=== PATIENT | female | born 1990 | race African-American/Black ===

== ENCOUNTER 2018-10-30 08:31 | Emergency (ER) | payer OTHER ==
[~2018-10-30] VITALS: Ht 167.6 cm; Wt 63.5 kg
[2018-10-30 08:52] LABS: URINE BLOOD 3+ (Negative); URINE CLARITY CLEAR; URINE COLOR YELLOW; URINE GLUCOSE-RANDOM* NEGATIVE (Negative); URINE KETONES 1+ (Negative); URINE NITRITE-REFLEX NEGATIVE (Negative); URINE PROTEIN (DIPSTICK) TRACE (Negative); URINE SPECIFIC GRAVITY >= 1.030 (1.005-1.035); URINE UROBILINOGEN 0.2 E.U./dl (0.2-1.0)
[2018-10-30 08:58] LABS: ICTOTEST (BILI CONFIRMATORY) Negative (Negative); URINE BILIRUBIN NEGATIVE (Negative); URINE LEUKOCYTES-REFLEX 2+ (Negative)
[2018-10-30 09:13] LABS: CASTS None Seen /LPF (None Seen); CRYSTALS None Seen /LPF (None Seen); SQUAMOUS >10 Many /LPF (0-3); URINE WBC-REFLEX >25 Many /HPF (0-5)
[2018-10-30 09:16] LABS: ABSOLUTE NEUTROPHILS 10.3 thou/uL (1.4-8.2); BASOPHILS 0.7 % (0.0-2.0); EOSINOPHILS 4.8 % (0.0-3.0); HEMATOCRIT 45.2 % (37.0-47.0); HEMOGLOBIN 15.3 gm/dL (12.0-15.0); LYMPHOCYTES 18.8 % (24.0-44.0); MCH 30.8 pg (26.0-34.0); MCHC 33.8 g/dL (28.0-37.0); MCV 91.2 fL (80.0-100.0); PLATELET COUNT 233 thou/uL (150-400); POLYS 66.7 % (36.0-66.0); RBC 4.96 mil/uL (4.20-5.00); RDW 13.8 % (10.5-14.5); WBC 15.4 thou/uL (4.0-11.0)
[2018-10-30 09:25] LABS: CALCIUM 9.3 mg/dL (8.5-10.1); CREATININE 0.8 mg/dL (0.6-1.0); POTASSIUM 3.3 mmol/L (3.5-5.1)
[2018-10-30 09:31] LABS: ALBUMIN 3.9 g/dL (3.4-5.0); TOTAL BILIRUBIN 0.6 mg/dL (<0.1-1.0); TOTAL PROTEIN 7.8 g/dL (6.4-8.2)
[2018-10-30] MEDS ORDERED: ADDERALL XR 2020 MG PO (09:41)
[2018-10-30] MEDS ORDERED: DOXYCYCLINE 10100 MG PO (12:10)
[2018-10-30] MEDS ORDERED: PROCTOCORT28.35 GM TOP (12:10)
[2018-10-30] MEDS ORDERED: FLAGYL500 M1 PO (12:10)
[2018-10-30] MEDS ORDERED: NORCO 5-325 TA1 EACH PO (12:10)
[2018-10-30] MEDS ORDERED: SENNA8.6 MG PO (12:10)
[2018-10-30 13:15] VITALS: BP 94/48
== END 2018-10-30 13:15 | disposition home or self-care (01) ==
LOC: ER 08:31
PROVIDERS: Physician Assistant
DX: N73.9 Female pelvic inflammatory disease, unspecified (principal); R11.10 Vomiting, unspecified; J45.909 Unspecified asthma, uncomplicated; K64.4 Residual hemorrhoidal skin tags; F17.210 Nicotine dependence, cigarettes, uncomplicated

== ENCOUNTER 2018-11-14 16:22 | Emergency (ER) | payer OTHER ==
[~2018-11-14] VITALS: Ht 167.6 cm; Wt 63.5 kg
[~2018-11-14 16:22] MED LIST: ADDERALL XR 2020 MG PO; DOXYCYCLINE 10100 MG PO; FLAGYL500 M1 PO; NORCO 5-325 TA1 EACH PO; PROCTOCORT28.35 GM TOP; SENNA8.6 MG PO
[2018-11-14] MEDS ORDERED: NAPROSYN500 MG PO (17:57)
[2018-11-14 18:04] VITALS: BP 100/62
[2018-11-14] MEDS ORDERED: ULTRAM 50MG TAB50 MG PO (18:12)
== END 2018-11-14 18:10 | disposition home or self-care (01) ==
LOC: ER 16:22
DX: S02.5XXA Fracture of tooth (traumatic), initial encounter for closed fracture (principal); S00.83XA Contusion of other part of head, initial encounter; S93.402A Sprain of unspecified ligament of left ankle, initial encounter; S93.602A Unspecified sprain of left foot, initial encounter; J45.909 Unspecified asthma, uncomplicated; F90.9 Attention-deficit hyperactivity disorder, unspecified type; F17.210 Nicotine dependence, cigarettes, uncomplicated; W10.9XXA Fall (on) (from) unspecified stairs and steps, initial encounter; Y93.89 Activity, other specified; Y92.89 Other specified places as the place of occurrence of the external cause; Y99.8 Other external cause status

== ENCOUNTER 2019-01-10 09:12 | Emergency (ER) | payer OTHER ==
[~2019-01-10] VITALS: Ht 167.6 cm; Wt 61.2 kg
[~2019-01-10 09:12] MED LIST changes: +NAPROSYN500 MG PO; +ULTRAM 50MG TAB50 MG PO
[2019-01-10 11:37] LABS: URINE BILIRUBIN NEGATIVE (Negative); URINE BLOOD 3+ (Negative); URINE CLARITY CLOUDY; URINE COLOR YELLOW; URINE GLUCOSE-RANDOM* NEGATIVE (Negative); URINE KETONES TRACE (Negative); URINE LEUKOCYTES-REFLEX NEGATIVE (Negative); URINE NITRITE-REFLEX NEGATIVE (Negative); URINE PROTEIN (DIPSTICK) NEGATIVE (Negative); URINE SPECIFIC GRAVITY >= 1.030 (1.005-1.035); URINE UROBILINOGEN 0.2 E.U./dl (0.2-1.0)
[2019-01-10 11:44] LABS: CASTS None Seen /LPF (None Seen); SQUAMOUS 0-3 Few /LPF (0-3); URINE RBC 3-10 Few /HPF (0-2)
[2019-01-10 11:45] LABS: AMORPHOUS URATES Many /LPF (None Seen); BACTERIA-REFLEX 1-9 Few /HPF (None Seen); URINE WBC-REFLEX None Seen /HPF (0-5)
[2019-01-10 12:01] VITALS: BP 108/53
[2019-01-11] MEDS ORDERED: HYDROCODONE-AP1 EAC6 PO (11:40)
[2019-01-11] MEDS ORDERED: NAPROSYN500 MG PO (11:40)
== END 2019-01-10 12:06 | disposition home or self-care (01) ==
LOC: ER 09:12
PROVIDERS: Emergency Medicine
DX: S00.83XA Contusion of other part of head, initial encounter (principal); F17.210 Nicotine dependence, cigarettes, uncomplicated; F90.9 Attention-deficit hyperactivity disorder, unspecified type; J45.909 Unspecified asthma, uncomplicated; Z87.442 Personal history of urinary calculi; W18.40XA Slipping, tripping and stumbling without falling, unspecified, initial encounter; Y93.E1 Activity, personal bathing and showering; Y92.89 Other specified places as the place of occurrence of the external cause; Y99.8 Other external cause status

== ENCOUNTER 2019-01-11 09:48 | Emergency (ER) | payer OTHER ==
[~2019-01-11] VITALS: Ht 167.6 cm; Wt 61.2 kg
[2019-01-11] MEDS ORDERED: NAPROSYN500 MG PO (11:40)
[2019-01-11] MEDS ORDERED: HYDROCODONE-AP1 EAC6 PO (11:40)
[2019-01-11 11:55] VITALS: BP 102/56
== END 2019-01-11 11:55 | disposition home or self-care (01) ==
LOC: ER 09:48
DX: S02.2XXA Fracture of nasal bones, initial encounter for closed fracture (principal); F17.210 Nicotine dependence, cigarettes, uncomplicated; J45.909 Unspecified asthma, uncomplicated; F90.9 Attention-deficit hyperactivity disorder, unspecified type; W18.2XXA Fall in (into) shower or empty bathtub, initial encounter; Y92.002 Bathroom of unspecified non-institutional (private) residence as the place of occurrence of the external cause; Y93.E1 Activity, personal bathing and showering; Y99.8 Other external cause status

== ENCOUNTER 2019-05-13 09:19 | Emergency (ER) | payer OTHER ==
[~2019-05-13] VITALS: Ht 167.6 cm; Wt 59.0 kg
[~2019-05-13 09:19] MED LIST changes: +HYDROCODONE-AP1 EAC6 PO
[2019-05-13 09:45] LABS: URINE BILIRUBIN NEGATIVE (Negative); URINE BLOOD TRACE (Negative); URINE CLARITY CLEAR; URINE COLOR YELLOW; URINE GLUCOSE-RANDOM* NEGATIVE (Negative); URINE KETONES NEGATIVE (Negative); URINE NITRITE-REFLEX NEGATIVE (Negative); URINE PROTEIN (DIPSTICK) NEGATIVE (Negative); URINE UROBILINOGEN 0.2 E.U./dl (0.2-1.0)
[2019-05-13 09:46] LABS: URINE LEUKOCYTES-REFLEX 3+ (Negative)
[2019-05-13 09:49] LABS: ABSOLUTE NEUTROPHILS 9.4 thou/uL (1.4-8.2); BASOPHILS 0.5 % (0.0-2.0); EOSINOPHILS 3.7 % (0.0-3.0); HEMATOCRIT 42.3 % (37.0-47.0); HEMOGLOBIN 14.1 gm/dL (12.0-15.0); LYMPHOCYTES 13.8 % (24.0-44.0); MCHC 33.4 g/dL (28.0-37.0); MCV 89.9 fL (80.0-100.0); MONOCYTES 10.8 % (1.0-8.0); POLYS 71.2 % (36.0-66.0); RDW 13.9 % (10.5-14.5); WBC 13.2 thou/uL (4.0-11.0)
[2019-05-13 09:53] LABS: SQUAMOUS >10 Many /LPF (0-3)
[2019-05-13 09:54] LABS: BACTERIA-REFLEX 1-9 Few /HPF (None Seen); CASTS None Seen /LPF (None Seen); CRYSTALS None Seen /LPF (None Seen); URINE RBC 0-2 Rare /HPF (0-2)
[2019-05-13 09:55] LABS: CALCIUM 8.9 mg/dL (8.5-10.1); CREATININE 0.8 mg/dL (0.6-1.0); POTASSIUM 3.8 mmol/L (3.5-5.1)
[2019-05-13 10:01] LABS: ALBUMIN 3.5 g/dL (3.4-5.0); TOTAL BILIRUBIN 0.6 mg/dL (<0.1-1.0); TOTAL PROTEIN 7.7 g/dL (6.4-8.2)
[2019-05-13 10:24] LABS: URINE BILIRUBIN NEGATIVE (Negative); URINE BLOOD TRACE (Negative); URINE CLARITY CLEAR; URINE COLOR YELLOW; URINE GLUCOSE-RANDOM* NEGATIVE (Negative); URINE KETONES NEGATIVE (Negative); URINE NITRITE-REFLEX NEGATIVE (Negative); URINE PROTEIN (DIPSTICK) NEGATIVE (Negative); URINE SPECIFIC GRAVITY 1.025 (1.005-1.035); URINE UROBILINOGEN 0.2 E.U./dl (0.2-1.0)
[2019-05-13 10:27] LABS: URINE LEUKOCYTES-REFLEX 1+ (Negative)
[2019-05-13 10:38] LABS: SQUAMOUS >10 Many /LPF (0-3)
[2019-05-13 10:39] LABS: BACTERIA-REFLEX 1-9 Few /HPF (None Seen); CASTS None Seen /LPF (None Seen); CRYSTALS None Seen /LPF (None Seen); MUCUS >6 Heavy strn/LPF (None Seen); URINE RBC 0-2 Rare /HPF (0-2); URINE WBC-REFLEX 6-15 Few /HPF (0-5)
[2019-05-13 10:48] LABS: LARGE PLATELETS FEW; PLATELET COUNT 218 thou/uL (150-400); PLATELET ESTIMATE NORMAL
[2019-05-13 13:08] VITALS: BP 94/50
== END 2019-05-13 13:08 | disposition home or self-care (01) ==
LOC: ER 09:19
PROVIDERS: Emergency Medicine
DX: R10.30 Lower abdominal pain, unspecified (principal); R11.2 Nausea with vomiting, unspecified; R51 Headache; J45.909 Unspecified asthma, uncomplicated; F17.210 Nicotine dependence, cigarettes, uncomplicated; Z83.3 Family history of diabetes mellitus; Z82.49 Family history of ischemic heart disease and other diseases of the circulatory system; Z82.3 Family history of stroke

== ENCOUNTER 2019-08-08 06:38 | Emergency (ER) | payer OTHER ==
[~2019-08-08] VITALS: Ht 167.6 cm; Wt 68.0 kg
[2019-08-08] MEDS ORDERED: NAPROSYN500 MG PO (10:00)
[2019-08-08 10:13] VITALS: BP 109/60
== END 2019-08-08 10:08 | disposition home or self-care (01) ==
LOC: ER 06:38
DX: N94.6 Dysmenorrhea, unspecified (principal); N93.8 Other specified abnormal uterine and vaginal bleeding; R51 Headache; G89.29 Other chronic pain; F17.210 Nicotine dependence, cigarettes, uncomplicated; J45.909 Unspecified asthma, uncomplicated; F90.9 Attention-deficit hyperactivity disorder, unspecified type

== ENCOUNTER 2019-11-02 16:22 | Emergency (ER) | payer OTHER ==
[~2019-11-02] VITALS: Ht 167.6 cm; Wt 61.2 kg
[2019-11-02 17:18] LABS: URINE BILIRUBIN NEGATIVE (Negative); URINE BLOOD NEGATIVE (Negative); URINE CLARITY CLEAR; URINE COLOR YELLOW; URINE GLUCOSE-RANDOM* NEGATIVE (Negative); URINE KETONES NEGATIVE (Negative); URINE LEUKOCYTES-REFLEX NEGATIVE (Negative); URINE NITRITE-REFLEX NEGATIVE (Negative); URINE PROTEIN (DIPSTICK) NEGATIVE (Negative); URINE SPECIFIC GRAVITY 1.025 (1.005-1.035); URINE UROBILINOGEN 0.2 E.U./dl (0.2-1.0)
[2019-11-02 18:22] LABS: HEMATOCRIT 47.2 % (37.0-47.0); HEMOGLOBIN 15.5 gm/dL (12.0-15.0); MCH 30.9 pg (26.0-34.0); MCHC 32.9 g/dL (28.0-37.0); MCV 94.1 fL (80.0-100.0); RBC 5.02 mil/uL (4.20-5.00); RDW 13.7 % (10.5-14.5); WBC 15.3 thou/uL (4.0-11.0)
[2019-11-02 18:28] LABS: CALCIUM 8.2 mg/dL (8.5-10.1); CREATININE 0.7 mg/dL (0.6-1.0); POTASSIUM 3.6 mmol/L (3.5-5.1)
[2019-11-02 18:40] LABS: TOTAL BILIRUBIN 0.3 mg/dL (<0.1-1.0); TOTAL PROTEIN 6.1 g/dL (6.4-8.2)
[2019-11-02] MEDS ORDERED: NORVASC 2.5 MG2.5 M1 PO (19:45)
[2019-11-02] MEDS ORDERED: ASPERCREME1 EACH TOP (19:45)
[2019-11-02] MEDS ORDERED: ARICEPT10 M1 PO (19:46)
[2019-11-02] MEDS ORDERED: COLACE100 MG PO (19:46)
[2019-11-02] MEDS ORDERED: GLUCAGON EMERGEN1 MG SUBQ (19:48)
[2019-11-02] MEDS ORDERED: ZESTRIL40 MG PO (19:49)
[2019-11-02] MEDS ORDERED: MAPAP500 M1 PO ×2 (19:50→19:51)
[2019-11-02] MEDS ORDERED: MELOXICAM15 MG PO (19:51)
[2019-11-02] MEDS ORDERED: METFORMIN HCL500 M3 PO (19:53)
[2019-11-02] MEDS ORDERED: LOPRESSOR50 MG PO (19:53)
[2019-11-02] MEDS ORDERED: NAMENDA 10 MG T10 MG PO (19:54)
[2019-11-02] MEDS ORDERED: DESYREL150 MG PO (19:55)
[2019-11-02] MEDS ORDERED: WELLBUTRIN XL150 MG PO (19:55)
[2019-11-02] MEDS ORDERED: NORCO 5-325 TA1 EAC1 PO (20:58)
[2019-11-02 21:05] VITALS: BP 93/64
--- NOTE | 2019-11-03 11:17 | EKG ---
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
== END 2019-11-02 21:20 | disposition home or self-care (01) ==
LOC: ER 16:22
PROVIDERS: Physician Assistant
DX: S82.831A Other fracture of upper and lower end of right fibula, initial encounter for closed fracture (principal); N83.201 Unspecified ovarian cyst, right side; F17.210 Nicotine dependence, cigarettes, uncomplicated; J45.909 Unspecified asthma, uncomplicated; Z79.899 Other long term (current) drug therapy; X50.1XXA Overexertion from prolonged static or awkward postures, initial encounter; Y93.89 Activity, other specified; Y92.89 Other specified places as the place of occurrence of the external cause; Y99.9 Unspecified external cause status

== ENCOUNTER 2020-12-01 09:21 | Emergency (ER) | payer OTHER ==
[~2020-12-01] VITALS: Ht 167.6 cm; Wt 62.6 kg
[~2020-12-01 09:21] MED LIST changes: +ARICEPT10 M1 PO; +ASPERCREME1 EACH TOP; +COLACE100 MG PO; +DESYREL150 MG PO; +GLUCAGON EMERGEN1 MG SUBQ; +LOPRESSOR50 MG PO; +MAPAP500 M1 PO; +MELOXICAM15 MG PO; +METFORMIN HCL500 M3 PO; +NAMENDA 10 MG T10 MG PO; +NORCO 5-325 TA1 EAC1 PO; +NORVASC 2.5 MG2.5 M1 PO; +WELLBUTRIN XL150 MG PO; +ZESTRIL40 MG PO
[2020-12-01 09:23] VITALS: BP 156/81
[2020-12-01 10:49] LABS: ABSOLUTE NEUTROPHILS 11.3 thou/uL (1.4-8.2); BASOPHILS 0.7 % (0.0-2.0); EOSINOPHILS 0.7 % (0.0-3.0); HEMATOCRIT 45.5 % (37.0-47.0); LYMPHOCYTES 18.2 % (24.0-44.0); MCH 30.4 pg (26.0-34.0); MCV 92.2 fL (80.0-100.0); MONOCYTES 7.8 % (1.0-8.0); POLYS 72.6 % (36.0-66.0); RBC 4.93 mil/uL (4.20-5.00); RDW 13.7 % (10.5-14.5); WBC 15.5 thou/uL (4.0-11.0)
[2020-12-01 10:54] LABS: ANION GAP 12 mmol/L (7-16); BUN 6 mg/dL (7-18); CALCIUM 9.1 mg/dL (8.5-10.1); CHLORIDE 106 mmol/L (98-107); CO2 22 mmol/L (21-32); CREATININE 0.8 mg/dL (0.6-1.0); GLUCOSE 91 mg/dL (74-106); POTASSIUM 3.4 mmol/L (3.5-5.1); SODIUM 140 mmol/L (136-145)
[2020-12-01 11:02] LABS: TROPONIN-I <0.06 ng/mL (<0.06)
[2020-12-01 11:14] LABS: PLATELET COUNT 270 thou/uL (150-400)
[2020-12-01 11:15] LABS: PLATELET ESTIMATE NORMAL
--- NOTE | 2020-12-01 14:22 | EKG ---
[place] [address] [facility] [employer] [place] [address] ELECTROCARDIOGRAM REPORT Name: JULIANNA BENNETT Room #: [facility] Abigail#: [id number] Admission: 12/01/20 Attend Phys: Discharge: 12/01/20 Date of : [birth year] Report #: [id number] [facility] ED Test Date: 2020-12-01 Test Time: 09:56:47 Pat Name: JULIANNA BENNETT Department: Room: Gender: F Psychiatrist: ALEXANDRA : 1990 Requested By: Shreya Barrow Order Number: [id number] MD: Kenneth Gotti Measurements Intervals [place] Rate: 94 P: 74 SD: 142 QRS: 83 QRSD: 72 T: 62 QT: 362 QTc: 453 Interpretive Statements Sinus rhythm Artifact in lead(s) V3 Compared to ECG 11/02/2019 17:15:05 No significant changes Electronically Signed On 12-01-2020 14:22:12 [employer]ENT[employer] DISPATCHER by Kenneth Gotti [email or web address] <ELECTRONICALLY SIGNED> By: Kenneth Gotti MD, [facility] 12/01/20 1422 0956 09 Kenneth Gotti MD, FACC /EPI
== END 2020-12-01 11:45 | disposition left against medical advice (07) ==
LOC: ER 09:21
PROVIDERS: Emergency Medicine
DX: S06.0X9A Concussion with loss of consciousness of unspecified duration, initial encounter (principal); S20.212A Contusion of left front wall of thorax, initial encounter; R11.2 Nausea with vomiting, unspecified; J45.909 Unspecified asthma, uncomplicated; F17.210 Nicotine dependence, cigarettes, uncomplicated; Z79.899 Other long term (current) drug therapy; W00.0XXA Fall on same level due to ice and snow, initial encounter; Y93.89 Activity, other specified; Y92.89 Other specified places as the place of occurrence of the external cause; Y99.8 Other external cause status

== ENCOUNTER 2021-04-06 11:31 | Emergency (ER) | payer OTHER ==
[~2021-04-06] VITALS: Ht 167.6 cm; Wt 63.5 kg
[2021-04-06] MEDS ORDERED: SUPER THERAVIT1 EACH PO (12:05)
[2021-04-06 13:15] LABS: AMP/METHAMP Negative (Negative); BARBITURATES Negative (Negative); BENZODIAZEPINES Negative (Negative); COCAINE POSITIVE (Negative); METHADONE Negative (Negative); OPIATES Negative (Negative); PCP Negative (Negative)
[2021-04-06] MEDS ORDERED: NORCO5 PO (14:39)
[2021-04-06 14:47] VITALS: BP 133/56
== END 2021-04-06 14:47 | disposition home or self-care (01) ==
LOC: ER 11:31
PROVIDERS: Emergency Medicine
DX: S42.102A Fracture of unspecified part of scapula, left shoulder, initial encounter for closed fracture (principal); S40.012A Contusion of left shoulder, initial encounter; S20.212A Contusion of left front wall of thorax, initial encounter; S00.81XA Abrasion of other part of head, initial encounter; R56.9 Unspecified convulsions; M54.2 Cervicalgia; J45.909 Unspecified asthma, uncomplicated; F17.210 Nicotine dependence, cigarettes, uncomplicated; Y04.2XXA Assault by strike against or bumped into by another person, initial encounter; Y93.89 Activity, other specified; Y92.89 Other specified places as the place of occurrence of the external cause; Y99.8 Other external cause status

== ENCOUNTER 2021-07-04 15:38 | Emergency (ER) | payer OTHER ==
[~2021-07-04] VITALS: Ht 167.6 cm; Wt 63.5 kg
[~2021-07-04 15:38] MED LIST changes: +NORCO5 PO; +SUPER THERAVIT1 EACH PO
[2021-07-04] MEDS ORDERED: PNV 29-1 TABLE1 EACH PO (15:51)
[2021-07-04 16:16] LABS: HEMATOCRIT 42.6 % (37.0-47.0); MCH 30.6 pg (26.0-34.0); MCHC 32.9 g/dL (28.0-37.0); RBC 4.58 mil/uL (4.20-5.00); RDW 13.4 % (10.5-14.5); WBC 14.1 thou/uL (4.0-11.0)
[2021-07-04 17:58] LABS: URINE BILIRUBIN NEGATIVE (Negative); URINE BLOOD 3+ (Negative); URINE CLARITY CLEAR; URINE COLOR YELLOW; URINE GLUCOSE-RANDOM* NEGATIVE (Negative); URINE KETONES NEGATIVE (Negative); URINE LEUKOCYTES-REFLEX TRACE (Negative); URINE NITRITE-REFLEX NEGATIVE (Negative); URINE PROTEIN (DIPSTICK) NEGATIVE (Negative); URINE UROBILINOGEN 0.2 E.U./dl (0.2-1.0)
[2021-07-04 18:18] VITALS: BP 134/88
[2021-07-04] MEDS ORDERED: CEPHALEXIN500 MG PO (18:19)
[2021-07-04 19:36] LABS: SQUAMOUS 4-10 Moderate /LPF (0-3)
[2021-07-04 19:38] LABS: BACTERIA-REFLEX None Seen /HPF (None Seen); CASTS None Seen /LPF (None Seen); CRYSTALS None Seen /LPF (None Seen); URINE WBC-REFLEX 0-5 Rare /HPF (0-5)
[2021-07-04 19:39] LABS: URINE RBC 3-10 Few /HPF (NONE SEEN)
== END 2021-07-04 18:22 | disposition home or self-care (01) ==
LOC: ER 15:38
PROVIDERS: Nurse Practitioner Family
DX: O23.41 Unspecified infection of urinary tract in pregnancy, first trimester (principal); Z3A.08 8 weeks gestation of pregnancy; R10.9 Unspecified abdominal pain; J45.909 Unspecified asthma, uncomplicated; F17.210 Nicotine dependence, cigarettes, uncomplicated; Z79.899 Other long term (current) drug therapy

== ENCOUNTER 2021-07-08 10:09 | Emergency (ER) | payer OTHER ==
[~2021-07-08] VITALS: Ht 167.6 cm; Wt 61.2 kg
[~2021-07-08 10:09] MED LIST changes: +CEPHALEXIN500 MG PO; +PNV 29-1 TABLE1 EACH PO
[2021-07-08 10:15] VITALS: BP 111/73
== END 2021-07-08 12:19 | disposition home or self-care (01) ==
LOC: ER 10:09
DX: O20.0 Threatened abortion (principal); Z3A.01 Less than 8 weeks gestation of pregnancy; F17.210 Nicotine dependence, cigarettes, uncomplicated; J45.909 Unspecified asthma, uncomplicated; Z79.899 Other long term (current) drug therapy